=== PATIENT | male | born 1985 | race Caucasian/White ===

== ENCOUNTER 2016-09-30 21:20 | Emergency (ER) ==
[2016-09-30 21:29] VITALS: BP 136/77
--- NOTE | 2016-09-30 21:52 | PROVIDER DOCUMENTATION ---
HPI-Chest Pain - General Chief Complaint: Chest Pain Stated Complaint: CP Time Seen by Provider: 09/30/16 21:28 Source: patient Allergies/Adverse Reactions: Patient Allergies Allergy/AdvReac Type Severity Reaction Status Date / Time No Known Allergies Allergy Verified 09/05/16 02:26 Home Medications: Phentermine HCl [Adipex-P] 37.5 mg PO DAILY 09/05/16 - History of Present Illness-CP Nature of Presenting Problem: 30 y/o m presents to the ed with chest pain. pt states he was on his way home tonight and while driving he started having a feeling of pressure in his chest that radiated to his left arm. pt states he has never had CP before. pt denies any fever/chills. Location: reports: substernal Chest Pain Radiation: reports: arms (left) Onset/Duration: 1-3 hours ago Timing: still present Nitro Today/Relief: no nitro taken today Aspirin Treatment Today: no aspirin today Prior Chest Pain/Cardiac Workup: reports: no prior chest pain Similar Symptoms Previously?: No Recently Seen Here or By Another Healthcare Provider: No Review of Systems - Adult - REVIEW OF SYSTEMS - ADULT Constitutional: denies: chills, fever Cardiovascular: reports: chest pain. denies: palpitations Neurological: denies: dizziness/vertigo, headache/migraines Past History - Adult - PAST MEDICAL HISTORY-ADULT Review of Records: reports: Old Records Reviewed, Nursing Assessment Review, Medications Reviewed - IMMUNIZATION STATUS Childhood Immunizations: See Nurse Assessment Flu Vaccine: See Nurse Assessment - SOCIAL HISTORY Smoking: cigarettes, greater than 1 pack/day Provider spent 3-5 mins advising pt. on dangers of tobacco.: Discussed manners to quit use, and f/u contacts for add'l counseling. Substance Use: none/never Alcohol Use Frequency: never Physical Exam-General - PHYSICAL EXAM-ADULT Initial Vital Signs Reviewed: Yes - CONSTITUTIONAL General Appearance: alert, no apparent distress - EYES Eyes: PERRL/EOMI, pink conjunctivae, fundi clear, no AV nicking - HEAD, EARS, NOSE, MOUTH & THROAT HENMT: normocephalic/atraumatic, moist mucous membranes, normal ENT inspection, TMs normal - NECK Neck: non-tender, full range of motion, supple - RESPIRATORY Respiratory: chest non-tender, lungs clear, normal breath sounds - CARDIOVASCULAR Cardiovascular: normal peripheral pulses, regular rate, rhythm - GASTROINTESTINAL (ABDOMEN) Abdominal Exam: normal bowel sounds, non tender, soft - LYMPHATIC Lymphatic: no adenopathy - MUSCULOSKELETAL Back Exam: normal inspection - SKIN Integumentary: normal color, normal turgor, warm/dry - PSYCHIATRIC Psych/Mental Status: normal mood/affect, normal thought content, normal thought process, oriented x 3 Progress - PLAN OF CARE/RESULTS Progress/Plan/Lab Results: plan of care: labs, imaging Laboratory Tests 09/30/16 09/30/16 21:40 21:40 WBC 14.90 H RBC 4.97 Hgb 14.6 Hct 43.8 MCV 88.1 MCH 29.4 MCHC 33.3 RDW Std Deviation 13.5 Plt Count 242 MPV 10.9 H Neut % (Auto) 58.7 Lymph % (Auto) 29.0 [place] % (Auto) 9.9 H Eos % (Auto) 2.1 Baso % (Auto) 0.3 Neut # (Auto) 8.74 H Lymph # (Auto) 4.32 H [place] # (Auto) 1.48 H Eos # (Auto) 0.32 Baso # (Auto) 0.04 PT 10.5 INR 0.99 PTT (Actin FS) 26.5 pt refused to stay for results Orders Category Date Time Status Cardiac Monitoring DIRECTED Care 09/30/16 21:59 Active Saline Loc NOW Care 09/30/16 21:59 Active CHEST-PORTABLE [RAD] Stat Exams 09/30/16 22:02 Taken CBC WITH ELECTRONIC DIFF [HEME] Stat Lab 09/30/16 21:40 Completed CK PROFILE [SP CHEM] Stat Lab 09/30/16 21:40 Received COMPREHENSIVE METABOLIC PANEL [CHEM] Stat Lab 09/30/16 21:40 Received PROTIME WITH INR [COAG] Stat Lab 09/30/16 21:40 Completed PTT [COAG] Stat Lab 09/30/16 21:40 Completed TROPONIN T Stat Lab 09/30/16 21:40 Received Aspirin Med 09/30/16 21:59 Discontinued 325 mg PO STAT STA Nitroglycerin Med 09/30/16 22:02 Discontinued 0.5 inch TOP NOW ONE EKG [EKG] Stat Ther 09/30/16 21:22 Ordered Vital Signs - 24 hr 09/30/16 21:28 Temperature 97.5 F L Pulse Rate 107 H Respiratory 16 Rate Blood Pressure 136/77 O2 Sat by Pulse 100 Oximetry Laboratory Tests 09/30/16 09/30/16 09/30/16 21:40 21:40 21:40 WBC 14.90 H RBC 4.97 Hgb 14.6 Hct 43.8 MCV 88.1 MCH 29.4 MCHC 33.3 RDW Std Deviation 13.5 Plt Count 242 MPV 10.9 H Neut % (Auto) 58.7 Lymph % (Auto) 29.0 [place] % (Auto) 9.9 H Eos % (Auto) 2.1 Baso % (Auto) 0.3 Neut # (Auto) 8.74 H Lymph # (Auto) 4.32 H [place] # (Auto) 1.48 H Eos # (Auto) 0.32 Baso # (Auto) 0.04 PT 10.5 INR 0.99 PTT (Actin FS) 26.5 Sodium 141 Potassium 4.0 Chloride 102 Carbon Dioxide 25 Anion Gap 14 BUN 11 Creatinine 0.8 Estimated GFR/1.73 m2 > 60 BUN/Creatinine Ratio 14 Glucose 88 Calculated Osmolality 280 Calcium 9.2 Total Bilirubin 0.35 AST 33 ALT 82 H Alkaline Phosphatase 105 Creatine Kinase 92 Troponin T Total Protein 6.8 Albumin 4.6 Globulin 2.2 Albumin/Globulin Ratio 2.1 09/30/16 21:40 WBC RBC Hgb Hct MCV MCH MCHC RDW Std Deviation Plt Count MPV Neut % (Auto) Lymph % (Auto) [place] % (Auto) Eos % (Auto) Baso % (Auto) Neut # (Auto) Lymph # (Auto) [place] # (Auto) Eos # (Auto) Baso # (Auto) PT INR PTT (Actin FS) Sodium Potassium Chloride Carbon Dioxide Anion Gap BUN Creatinine Estimated GFR/1.73 m2 BUN/Creatinine Ratio Glucose Calculated Osmolality Calcium Total Bilirubin AST ALT Alkaline Phosphatase Creatine Kinase Troponin T < 0.010 Total Protein Albumin Globulin Albumin/Globulin Ratio - EKG 1 Time of EKG reading by physician:: 21:50 EKG Read and Signed by:: Bennie Simons Rate: 107 Rhythm: sinus tachy 2 Time of EKG reading by physician:: 23:17 EKG Read and Signed by:: Bennie Simons Rate: 102 Rhythm: sinus tachy - XRAY 1 XRAY Study: Chest Impression: Normal XRAY Interpretation: NAF Departure - Departure Time of Disposition Order: 23:16 DIAGNOSIS: Atypical chest pain Disposition: HOME 01 Certified Medical Emergency: Emergent Condition: Stable Additional Instructions: ED Follow Up Instructions: You have been treated by a care provider in the Emergency Department. These instructions are being provided to you so you can have an understanding of how to care for yourself upon discharge. Upon discharge from the Emergency Department, you are responsible for making arrangements for follow-up care by a physician of your choice. Take all prescribed medications as directed. Return to the Emergency Department immediately for any new or worsening symptoms. You may call the Physician Referral phone number at [phone] to obtain a list of Physicians who are taking new patients. Referrals: Juan Carlos Nguyen [Primary Care Provider] - Gene Covington MD [STAFF PHYSICIAN] - Attestation - Scribe Verification/Attestation Scribe:: Alea Eldridge Acting as Scribe for:: Bennie Simons Scribe documention review:: This chart was documented by a scribe and accurately reflects the service the provider performed and the decisions made by the provider.
[2016-09-30] MEDS ORDERED: ASPIRIN PO STA (21:59)
[2016-09-30] MEDS ORDERED: NITROGLYCERIN TOP ONE (22:02)
[2016-09-30 22:08] LABS: MANUAL DIFF NEEDED? NO
[2016-09-30 22:13] LABS: BASO% 0.3 % (0.0-0.8); EOS# 0.32 X1000 (0.0-0.7); EOS% 2.1 % (0.0-10.0); HEMATOCRIT 43.8 % (42.0-52.0); HEMOGLOBIN 14.6 g/dL (14.0-18.0); LYMPH# 4.32 X1000 (1.2-3.4); MCH 29.4 PG (27-31); MCHC 33.3 g/dL (33-37); MCV 88.1 FL (81-99); MONO# 1.48 X1000 (0.11-0.59); MONO% 9.9 % (1.7-9.3); MPV 10.9 FL (7.4-10.4); NEUT% 58.7 % (42.2-75.2); PLT 242 X1000 (130-400); RBC 4.97 XMIL (4.7-6.1)
[2016-09-30 22:24] LABS: INR 0.99; PROTIME 10.5 Seconds (9.2-11.7); PTT 26.5 Seconds (22.0-36.0)
[2016-09-30 22:36] LABS: AGAP 14; ALBUMIN 4.6 g/dL (3.5-5.0); ALKALINE PHOSPHATASE 105 U/L (32-122); BUN 11 mg/dL (8-22); CALCIUM 9.2 mg/dL (8.8-10.2); CHLORIDE 102 mmol/L (98-107); CK PROFILE 92 U/L (24-204); COSMO 280; GOT 33 U/L (10-34); GPT 82 U/L (10-44); SODIUM 141 mmol/L (136-145); TCO2 25 mmol/L (25-35); TOTAL BILIRUBIN 0.35 mg/dL (0.20-1.00); TOTAL PROTEIN 6.8 g/dL (6.3-8.3)
--- NOTE | 2016-10-01 05:26 | EKG Report ---
Test Performed on : 09/30/2016 11:10:41 PM Test Reason : pain Blood Pressure : / mmHG Vent. Rate : 102 BPM Atrial Rate : 102 BPM P-R Int : 170 ms QRS Dur : 084 ms QT Int : 344 ms P-R-T Axes : 008 013 055 degrees QTc Int : 448 ms Sinus tachycardia. Minimal voltage criteria for LVH, may be normal variant Borderline ECG When compared with ECG of 30-SEP-2016 21:23, (Unconfirmed) No significant change was found Unconfirmed Result
--- NOTE | 2016-10-01 05:26 | EKG Report ---
Test Performed on : 09/30/2016 9:23:26 PM Test Reason : CP Blood Pressure : / mmHG Vent. Rate : 107 BPM Atrial Rate : 107 BPM P-R Int : 154 ms QRS Dur : 086 ms QT Int : 328 ms P-R-T Axes : 028 030 051 degrees QTc Int : 437 ms Sinus tachycardia. Otherwise normal ECG No previous ECGs available Unconfirmed Result
--- NOTE | 2016-10-01 08:05 | Diag Imaging Result Document ---
PROCEDURE NAME: CHEST-PORTABLE - 09/30/2016 AP PORTABLE CHEST ERECT: TIME: 2220 hours. FINDINGS: The inspiration is slightly suboptimal. The lungs appear to be clear and the heart and pulmonary vascularity are within normal limits. IMPRESSION: Normal chest.
== END 2016-09-30 23:51 | disposition home or self-care (01) ==
LOC: ED 21:20
DX: R07.89 Other chest pain (principal); M79.602 Pain in left arm; F17.210 Nicotine dependence, cigarettes, uncomplicated; Z71.6 Tobacco abuse counseling
CPT/HCPCS: 36415; 71010; 80053; 82550; 84484; 85025; 85610; 85730; 93005; 99283